=== PATIENT | male | born 2005 | race Caucasian/White ===

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

== ENCOUNTER 2024-07-31 15:37 | Emergency (ER) | payer SELFPAY ==
[2024-07-31 15:50] VITALS: RESP 16; TEMP 97.7
[2024-07-31 16:53] LABS: INFLUENZA A NEGATIVE (NEGATIVE); INFLUENZA B NEGATIVE (NEGATIVE); RESPIRATORY SYNCTIAL VIRUS NEGATIVE (NEGATIVE); SARS-CoV-2 Xpert Express NEGATIVE (NEGATIVE)
--- NOTE | 2024-07-31 17:26 | ERPHSYRPT ---
- History of Present Illness Time Seen by Provider: 07/31/24 16:20 Source: patient Exam Limitations: no limitations Patient Subjective Stated Complaint: here for chills, aches, vomited today Triage Nursing Assessment: pt alert walked in, resp easy, skin w/d/p. no cough, moves all ext well Physician History: 15-year-old male presents to our ED for evaluation of generalized bodyaches diarrhea nausea and vomiting. Symptoms started today. Possible sick contacts at work. Symptoms are mild to moderate in intensity. No specific worsening or improving factors. No shortness of breath no chest pain. No rash no fever. Mother at bedside. Patient is otherwise healthy no significant past medical history. They voiced no other complaints or concerns at this time. Portions of this note were created with voice recognition technology. There may be grammatical, spelling, punctuation or sound alike errors Timing/Duration: today Severity: moderate Associated Symptoms: nausea, vomiting, No abdominal pain, No shortness of breath, No diaphoresis, No cough, No fever, No syncope, No weakness Allergies/Adverse Reactions: diphenhydramine Allergy (Severe, Verified 07/31/24 15:44) Swelling mother states patient cannot have iv benadryl. does use po benadryl nightly at home Hx Tetanus, Diphtheria Vaccination/Date Given: Yes Hx Influenza Vaccination/Date Given: No Hx Pneumococcal Vaccination/Date Given: No Immunizations Up to Date: Yes Travel Risk - International Travel Have you traveled outside of the country in past 3 weeks: No - Emerging Infectious Disease Are you exhibiting symptoms associated with any current EIDs: No Symptoms: Diarrhea, Fever, Headaches/Body Aches/ - Review of Systems Constitutional: No Symptoms, No Fever, No Chills Eyes: No Symptoms Ears, Nose, & Throat: No Symptoms Respiratory: No Symptoms, No Cough, No Dyspnea Cardiac: No Symptoms, No Chest Pain, No Edema, No Syncope Abdominal/Gastrointestinal: No Symptoms, No Abdominal Pain, No Nausea, No Vomiting, No Diarrhea Genitourinary Symptoms: No Symptoms, No Dysuria Musculoskeletal: No Symptoms, No Back Pain, No Neck Pain Skin: No Symptoms, No Rash Neurological: No Symptoms, No Dizziness, No Focal Weakness, No Sensory Changes Psychological: No Symptoms Endocrine: No Symptoms Hematologic/Lymphatic: No Symptoms Immunological/Allergic: No Symptoms All Other Systems: Reviewed and Negative - Past Medical History Pertinent Past Medical History: Yes Neurological History: No Pertinent History ENT History: No Pertinent History Respiratory History: No Pertinent History Endocrine Medical History: No Pertinent History Musculoskeletal History: No Pertinent History GI Medical History: No Pertinent History History: No Pertinent History Psycho-Social History: No Pertinent History Male Reproductive Disorders: No Pertinent History Other Medical History: MONO, Strep throat - Past Surgical History Past Surgical History: Yes Neuro Surgical History: No Pertinent History Cardiac: No Pertinent History Respiratory: No Pertinent History Gastrointestinal: No Pertinent History Genitourinary: No Pertinent History Musculoskeletal: No Pertinent History Male Surgical History: No Pertinent History Other Surgical History: TUBES IN MELANIE EARS - Social History Smoking Status: Current every day smoker How long have you smoked: a year Exposure to second hand smoke: Yes Drug Use: none Patient Lives Alone: No - Social Determinants of Health Will the patient participate in the screening: Yes Do you worry about a steady place to live?: No Do you have any problems with any of the following?: No known problems In the past 12 months,have you had to go without utilities?: No Transportation Issues: No Has anyone in your support network made you feel unsafe?: No Have you or anyone in your house had to go without enough: No - Nursing Vital Signs Nursing Vital Signs: Initial Vital Signs Temperature 97.7 F 07/31/24 15:50 Pulse Rate 62 07/31/24 15:50 Respiratory Rate 16 07/31/24 15:50 Blood Pressure 123/71 07/31/24 15:50 O2 Sat by Pulse Oximetry 98 07/31/24 15:50 Pain Scale Pain Intensity 7 - Physical Exam General Appearance: no apparent distress, alert Eye Exam: PERRL/EOMI, eyes nml inspection Ears, Nose, Throat Exam: normal ENT inspection, TMs normal, pharynx normal, moist mucous membranes Neck Exam: normal inspection, non-tender, supple, full range of motion Respiratory Exam: normal breath sounds, lungs clear, No respiratory distress Cardiovascular Exam: regular rate/rhythm, normal heart sounds, normal peripheral pulses Gastrointestinal/Abdomen Exam: soft, normal bowel sounds, No tenderness, No mass Back Exam: normal inspection, normal range of motion, No CVA tenderness, No vertebral tenderness Extremity Exam: normal inspection, normal range of motion, pelvis stable Neurologic Exam: alert, oriented x 3, cooperative, normal mood/affect, sensation nml, No motor deficits Skin Exam: normal color, warm, dry, No rash Lymphatic Exam: No adenopathy SpO2 Interpretation: normal SpO2: 99 O2 Delivery: Room Air - Course Nursing assessment & vital signs reviewed: Yes Ordered Tests: Medication Summary Discontinued Medications Generic Name Dose Route Start Last Admin Trade Name Edwina PRN Reason Stop Dose Admin Ketorolac Tromethamine 30 mg 07/31/24 17:23 Ketorolac Tromethamine 30 Mg/Ml Inj IM 07/31/24 17:24 STAT ONE Ondansetron HCl 4 mg 07/31/24 17:23 Zofran 4 Mg/Udtablet Orally Disintegrating PO 07/31/24 17:24 STAT ONE Lab/Rad Data: Laboratory Results 07/31/24 Range/Units 16:04 Influenza Type A Ag NEGATIVE (NEGATIVE) Influenza Type B Ag NEGATIVE (NEGATIVE) RSV (PCR) NEGATIVE (NEGATIVE) SARS-CoV-2 (PCR) NEGATIVE (NEGATIVE) - Progress Progress: improved Progress Note: 18-year-old male with no significant past medical history presents to our emergency department for evaluation of bodyaches nausea vomiting and diarrhea. Physical exam essentially nonremarkable. Vital stable. RSV influenza COVID- negative. Patient received IM Toradol and Zofran ODT. Patient tolerated p.o. No nausea vomiting observed in our ED. Patient resting comfortably. Given normal physical exam normal vitals and no active complaints will discharge patient home. No indication for further workup at this time. Patient requesting a work note. He agrees to follow-up with his primary care doctor wi thin 48 hours for reevaluation. Mother at bedside. They voiced no other complaints or concerns at this time. Portions of this note were created with voice recognition technology. There may be grammatical, spelling, punctuation or sound alike errors 07/31/24 17:31 Complexity of problem addressed is moderate acute complicated no critical care time complex of data reviewed and analyzed is moderate. Test ordered test reviewed results analyzed and correlated clinically with history and physical exam. Risk of complication and or risk of morbidity/mortality of patient management is moderate. A prescription for Zofran forwarded to patient's pharmacy. A prescription for Toradol forwarded to patient's pharmacy. Vital stable. Time spent to discharge patient is approximately 15 minutes. Plan of care established for shared decision making. No social determinants of health present to impede follow-up. Work note provided. Portions of this note were created with voice recognition technology. There may be grammatical, spelling, punctuation or sound alike errors 07/31/24 17:35 Counseled pt/family regarding: lab results, diagnosis, need for follow-up - Departure Departure Disposition: Home Clinical Impression: Nausea, Body aches, Diarrhea, Viral syndrome Condition: Stable Critical Care Time: No Referrals: JOCELYN CHAND, [Primary Care Provider] - Follow up/PCP as directed Additional Instructions: Discharge/Care Plan VLADIMIRMARLENE ROGER was seen on 07/31/24 in the Emergency Room. The patient was counseled regarding Diagnosis,Lab results, Imaging studies, need for follow up and when to return to the Emergency Room. Prescriptions given: Discharge Note I have spoken with the patient and/or caregivers. I have explained the patient's condition, diagnosis and treatment plan based on the information available to me at this time. I have answered the patient's and/or caregiver's questions and addressed any concerns. The patient and/or caregivers have as good understanding of the patient's diagnosis, condition and treatment plan as can be expected at this point. The vital signs have been stable. The patient's condition is stable and appropriate for discharge from the emergency department. The patient will pursue further outpatient evaluation with the primary care physician or other designated or consulting physician as outlined in the discharge instructions. The patient and/or caregivers are agreeable to this plan of care and follow-up instructions have been explained in detail. The patient and/or caregivers have received these instruction. The patient/and or caregivers are aware that any significant change in condition or worsening of symptoms should prompt an immediate return to this or the closest emergency department or call 911. Forms: Work/School Release Form Prescriptions: Ondansetron ODT 4 MG [Zofran Odt 4 mg] 4 mg PO Q6H PRN PRN #10 tablet PRN Reason: Vomiting Ketorolac Trometh 10 mg Tab [TORAdol 10 MG TABLET] 10 mg PO TID 5 Days #15 tablet
[2024-07-31] MEDS ORDERED: ZOFRAN ODT 4 MG ONE (17:38)
[2024-07-31] MEDS ORDERED: TORAdol 30 mg Injection ONE (17:38)
[2024-07-31] MEDS: TORAdol 30 mg Injection IM ONE (17:40)
[2024-07-31] MEDS: ZOFRAN ODT 4 MG PO ONE (17:41)
[2024-07-31 18:23] VITALS: BP 114/64; PULSE 78; O2SAT 97
== END 2024-07-31 18:22 | disposition home or self-care (01) ==
LOC: ED 15:37
DX: B34.9 Viral infection, unspecified (principal); R11.2 Nausea with vomiting, unspecified; R68.83 Chills (without fever); R52 Pain, unspecified; R19.7 Diarrhea, unspecified; F17.200 Nicotine dependence, unspecified, uncomplicated
CPT/HCPCS: 0241U; 96372; 99283; J1885; Q0162